=== PATIENT | female | born 1970 | race Caucasian/White ===

== ENCOUNTER 2019-04-22 19:55 | Emergency (ER) | payer OTHER ==
[~2019-04-22] VITALS: Ht 160 cm; Wt 61.2 kg
[2019-04-22] MEDS ORDERED: Calan40 MG (23:41)
[2019-04-22] MEDS ORDERED: IBU600 M1 PO (23:41)
[2019-04-22] MEDS ORDERED: MGO400 MG PO (23:41)
[2019-04-22] MEDS ORDERED: Ventolin/Prove6.7 GM INH (23:41)
[2019-04-22] MEDS ORDERED: DIVA250ER PO (23:41)
[2019-04-22] MEDS ORDERED: BACL20 PO (23:42)
[2019-04-22] MEDS ORDERED: OXYB5 PO (23:42)
[2019-04-22] MEDS ORDERED: Cetirizine HCl10 MG PO (23:42)
[2019-04-22] MEDS ORDERED: Flonase 0.05% N16 GM (23:42)
[2019-04-22] MEDS ORDERED: OMEP20ER PO (23:43)
[2019-04-22] MEDS ORDERED: Primidone50 MG PO (23:43)
== END 2019-04-22 23:39 | disposition home or self-care (01) ==
LOC: ER 19:55
DX: S09.90XA Unspecified injury of head, initial encounter (principal); S51.011A Laceration without foreign body of right elbow, initial encounter; G80.9 Cerebral palsy, unspecified; Z88.6 Allergy status to analgesic agent; Z88.5 Allergy status to narcotic agent; Z88.8 Allergy status to other drugs, medicaments and biological substances; Z91.09 Other allergy status, other than to drugs and biological substances; Z91.040 Latex allergy status; Z79.899 Other long term (current) drug therapy; W01.0XXA Fall on same level from slipping, tripping and stumbling without subsequent striking against object, initial encounter; Y93.E1 Activity, personal bathing and showering
CPT/HCPCS: 12001; 73070; 99283-25